=== PATIENT | female | born 1955 | race Caucasian/White ===

== ENCOUNTER 2017-09-22 05:44 | Observation (INO) | payer BC, OTHER ==
[2017-09-22] MEDS ORDERED: LR 1,000 ML IV ONE (06:03)
[2017-09-22] MEDS ORDERED: LIDOCAINE 1% 2 ML INJ ONE (06:15)
--- NOTE | 2017-09-22 06:52 | PDANEPAE ---
ANE History of Present Illness URINARY INCONTINENCE ANE Past Medical History - Cardiovascular History Hx Hypertension: Yes Hx Arrhythmias: No Hx Chest Pain: No Hx Coronary Artery / Peripheral Vascular Disease: No Hx CHF / Valvular Disease: No Hx Palpitations: No Cardiovascular History Comment: MANAGED BY DR CAIT MOMIN - Pulmonary History Hx COPD: No Hx Asthma/Reactive Airway Disease: No Hx Recent Upper Respiratory Infection: No Hx Oxygen in Use at Home: Yes Hx Sleep Apnea: No Sleep Apnea Screening Result - Last Documented: Negative - Neurologic History Hx Cerebrovascular Accident: No Hx Seizures: No Hx Dementia: No - Endocrine History Hx Diabetes: Yes Hypothyroid: No Hyperthyroid: No Obesity: yes, mild Endocrine History Comment: IDDM SINCE 1997 - Renal History Hx Renal Disorders: Yes Renal History Comment: UA INCONT. STAGE II KIDNEY DISEASE - Liver History Hx Hepatic Disorders: No - Neurological & Psychiatric Hx Hx Neurological and Psychiatric Disorders: Yes Neurological / Psychiatric History Comment: MIGRAINES 2X MONTH. DEPRESSION - Cancer History Hx Cancer: No - Congenital Disorder History Hx Congenital Disorders: No - GI History GERD: no Hx Gastrointestinal Disorders: Yes Gastrointestinal History Comment: HIATAL HERNIA IMPROVED POST GASTRIC BYPASS. SLIGHT SCOLIOSIS - Other Health History Other Health History: FIBROMYALGIA. NEUROPATHY ARMS/LEG. [facility] 2002. GLAUCOMA. OSTEOARTHRITIS LT HAND - Chronic Pain History Chronic Pain: Yes (CHRONIC LOWER LUMBAR) - Surgical History Prior Surgeries: MAUREEN CATARACT POST LASER. RT EYE VITRECTOMY. GASTRIC BYPASS 2012 IN [facility]. RT FALLOPIAN TUBE DRAINED FLUID ANE Review of Systems Review of Systems: - Exercise capacity METS (RN): 4 METS - Systems Genitourinary: Reports: incontinence ANE Patient History - Allergies Allergies/Adverse Reactions: ALEX Inhibitors Allergy (Verified 09/08/17 16:41) DIFFICULTY BREATHING ARB-Angiotensin Receptor Antagonist Allergy (Verified 09/08/17 16:41) ANKLE EDEMA ciprofloxacin [From Cipro] Allergy (Verified 09/08/17 16:42) Rash lactose Allergy (Verified 09/08/17 16:43) INTOLERANCE TO MILK OK WITH CHEESE losartan Allergy (Verified 09/08/17 16:40) ORAL SWELLING oxycodone [From Percocet] Allergy (Verified 09/08/17 16:43) NIGHTMARES Penicillins Allergy (Verified 09/08/17 16:42) Rash tetracycline Allergy (Verified 09/08/17 16:42) Rash - Home Medications Home Medications: ASPIRIN DAILY06 09/08/17 [Last Taken 09/16/17] Align DAILY06 09/08/17 [Last Taken 09/20/17] Alphagan 0.2% BID 09/08/17 [Last Taken 09/22/17 05:00] HCTZ (*) DAILY06 09/08/17 [Last Taken 09/20/17] Herbal Drugs DAILY 09/08/17 [Last Taken 09/21/17] Lantus 20 HS 09/08/17 [Last Taken 09/22/17 05:00] Lantus 25 DAILY06 09/08/17 [Last Taken 09/21/17] Macrodantin HS 09/08/17 [Last Taken 09/21/17] SIMVASTATIN HS 09/08/17 [Last Taken 09/21/17] TOPIRAMATE DAILY06 09/08/17 [Last Taken 09/22/17 05:00] Valsartan HS 09/08/17 [Last Taken 09/22/17 05:00] novoLOG BID 09/08/17 [Last Taken 09/21/17 18:00] - NPO status NPO Since - Liquids (Date): 09/21/17 NPO Since - Liquids (Time): 22:00 NPO Since - Solids (Date): 09/21/17 NPO Since - Solids (Time): 23:00 - Anes Hx Anes Hx: no prior problems - Smoking Hx Smoking Status: Never smoked - Alcohol Use Alcohol Use: Rarely - Family Anes Hx Family Anes Hx: neg - N/A ANE Labs/Vital Signs - Vital Signs Blood Pressure: 144/86 Heart Rate: 96 Respiratory Rate: 12 O2 Sat (%): 96 Height: 160.02 cm Weight: 81.193 kg ANE Physical Exam - Airway Neck exam: FROM Mallampati Score: Class 3 Mouth exam: normal dental/mouth exam - Pulmonary Pulmonary: no respiratory distress, no rales or rhonchi, clear to auscultation - Cardiovascular Cardiovascular: regular rate and rhythym, no murmur, rub, or gallop - ASA Status ASA Status: III ANE Anesthesia Plan Anesthesia Plan: general endotracheal anesthesia Total IV Anesthesia: No
[2017-09-22] MEDS ORDERED: ESTROGENS,CONJUGATED 30 GM CRTUBE VG ONE (07:01)
[2017-09-22] MEDS ORDERED: BUPIVACAINE/EPI 0.5% 30 ML SDV ONE (07:01)
--- NOTE | 2017-09-22 07:04 | PDHPUP ---
History & Physical Update H&P update statement: This history and physical update is based on an assessment of the patient which was completed after admission or registration (within 24 hours), but prior to the surgery/procedure. H&P update: H&P reviewed & patient examined
[2017-09-22] MEDS ORDERED: MIDAZOLAM 2 MG/2 ML VIAL ONE (07:07)
[2017-09-22] MEDS ORDERED: MIDAZOLAM 2 MG/2 ML VIAL IVP ONE (07:09)
[2017-09-22] MEDS ORDERED: ceFAZolin 2 GM/SWFI 2 GM/20 ML SYR IVP ONE (07:15)
[2017-09-22] MEDS ORDERED: PROPOFOL 200 MG/20 ML VIAL ONE (07:16)
[2017-09-22] MEDS ORDERED: ONDANSETRON 4 MG/2 ML VIAL ONE (07:16)
[2017-09-22] MEDS ORDERED: fentaNYL 100 MCG/2 ML INJ ONE ×2 (07:16→09:20)
[2017-09-22] MEDS ORDERED: LIDOCAINE 2% 5 ML SDV ONE (07:17)
[2017-09-22] MEDS ORDERED: ROCURONIUM 50 MG/5 ML VIAL ONE (07:17)
[2017-09-22] MEDS ORDERED: PHENYLEPHRINE HCL 100 MCG/ML SYR ONE (07:42)
[2017-09-22] MEDS ORDERED: LIDOCAINE 1% 300 MG/30 ML SDV ONE ×2 (07:42→08:11)
[2017-09-22] MEDS ORDERED: BUPIVACAINE 0.25% 30 ML SDV ONE (07:42)
[2017-09-22] MEDS ORDERED: ACETAMINOPHEN 500 MG TAB PO PRN (08:19)
[2017-09-22] MEDS ORDERED: fentaNYL 100 MCG/2 ML INJ IVP PRN (08:19)
[2017-09-22] MEDS ORDERED: PROMETHAZINE HCL 25 MG/ML INJ IVP PRN (08:19)
[2017-09-22] MEDS ORDERED: NALOXONE HCL 0.4 MG/ML INJ IVP PRN (08:19)
[2017-09-22] MEDS ORDERED: HYDROmorphONE/DILAUDID 1 MG/ML INJ IVP PRN (08:19)
[2017-09-22] MEDS ORDERED: MEPERIDINE 25 MG/ML SYR IVP PRN (08:19)
[2017-09-22] MEDS ORDERED: NS 500 ML IV PRN (08:19)
[2017-09-22] MEDS ORDERED: ONDANSETRON 4 MG/2 ML VIAL IVP PRN ×2 (08:19→13:17)
[2017-09-22] MEDS ORDERED: SUGAMMADEX SODIUM 200 MG/2 ML VIAL IVP ONE (08:32)
[2017-09-22] MEDS ORDERED: KETOROLAC 30 MG/1 ML SDV ONE (08:34)
--- NOTE | 2017-09-22 08:53 | POSTOPPROG ---
Post Op Note Date of Operation: 09/22/17 Surgeon: Walker Garcia Anesthesia: GET(General Endotracheal) Pre-op Diagnosis: MAYA Post-op Diagnosis: MAYA Procedure: mid urethral sling Findings: [id number] Inf/Abcess present in the surg proc area at time of surgery?: No EBL: Minimal Complications: none
--- NOTE | 2017-09-22 09:10 | GOP ---
[f rep st] OPERATIVE REPORT DATE OF OPERATION: 09/22/2017 SURGEON: Singh Garcia MD ANESTHESIA: General. PREOPERATIVE DIAGNOSIS: Stress urinary incontinence. POSTOPERATIVE DIAGNOSIS: Stress urinary incontinence. PROCEDURE PERFORMED: Mid urethral sling. FINDINGS: ESTIMATED BLOOD LOSS: 15 ml COMPLICATIONS: None. DRAINS: Mckeon catheter. PACKING: Vaginal. TECHNIQUE: The patient was taken to the operating room. General anesthesia was induced. Patient was placed in the dorsal lithotomy position, prepped and draped in sterile fashion. A Mckeon catheter was inserted. The [place] retractor was positioned. The bladder was drained. Thirty ml of 0.25% Marcaine with epinephrine were injected around the urethra. Sixty ml of 0.5% plain lidocaine were injected with a spinal needle through stab wounds, which were 2 fingerbreadths lateral to the midline and 1 fingerbreadth above in a significant skin fold. Sixty ml were injected on each side to help hydrodissect. The catheter guide was placed in the bladder. The bladder was directed superiorly into the patient's left. An incision was made in the midline vagina approximately 1.5 cm long approximately 1.5 cm from the meatus. The periurethral dissection was carried out with Metzenbaum scissors. The fascial plane seemed to be appropriate. The trocar was then passed from the vagina out through the patient's right stab wound. The blue sheath was grasped with a hemostat. Cystoscopy was performed with a 70-degree lens, carefully inspecting the bladder, and no bladder injury was noted. This was repeated on the patient's left side. Again, no bladder injury was noted with at least 300 mL distention. The sheath was then pulled up around the catheter around a 7 Hegar dilator. It was pulled snug given the patient's significant stress incontinence and was ensured to be completely flat. The tab was then removed. The sheaths were then removed bilaterally. The trocar was removed. The sling material pulled within the vaginal incision nicely. The excessive sling material was then cut at the skin. The skin was closed with horizontal mattress 3-0 chromic. The vaginal incision was then closed with a running 2-0 Vicryl suture. The vaginal packing with Premarin was placed. The suprapubic wounds were cleansed and Dermabond was applied. The patient was then returned to the supine position and was being prepared for extubation at the time of this dictation. /[id number]/MODL MTDD
--- NOTE | 2017-09-22 09:21 | POSTANESTH ---
Post Anesthetic Evaluation Cardiovascular Status: Normal, Stable Respiratory Status: Normal, Stable Level of Consciousness/Mental Status: Can Participate in Eval Pain Control: Adequate, Prn Tx Ordered Nausea/Vomiting Control: Adequate, Prn Tx Ordered Complications Possibly Related to Anesthesia: None Noted
[2017-09-22] MEDS ORDERED: HYDROCODONE/APAP 5/325 TAB ONE ×2 (10:14→11:02)
[2017-09-22] MEDS: HYDROCODONE/APAP 5/325 TAB PO PRN ×2 (10:15→11:03)
[2017-09-22] MEDS ORDERED: ACETAMINOPHEN 325 MG TAB PO PRN (13:17)
[2017-09-22] MEDS ORDERED: diphenhydrAMINE 25 MG CAP PO PRN (13:17)
[2017-09-22] MEDS ORDERED: LORazepam 0.5 MG TAB PO PRN (13:17)
[2017-09-22] MEDS ORDERED: D50W 25 GM/50 ML SYR IVP PRN (14:07)
[2017-09-22] MEDS ORDERED: LIDOCAINE 5% 1 EA PATCH TD PRN (15:11)
--- NOTE | 2017-09-22 15:24 | PDGENHP ---
History and Physical - Chief Complaint Left lateral upper thigh pain. - History of Present Illness Source-patient provides history appears reliable. Case discussed with Dr. Garcia. EMR reviewed. HPI - 62-year-old female with past medical history significant for chronic pain , diabetes type 2 uncontrolled with retinopathy and neuropathy, hypertension, HLD, anxiety disorder, history West Nile encephalitis admitted postoperatively from a an outpatient transvaginal sling with Dr. Garcia. Procedure was uncomplicated with minimal blood loss. In the PACU however patient did complain of severe "20/10" pain in her left lateral thigh. Patient denies any joint pain. Per Dr. Garcia patient was very tearful she was having trouble ambulating although she did add reports she attempted. She was given a dose of Toradol and Cameron without significant improvement in her pain. Patient reports that sharp constant worse with movement. She denies any new or radicular symptoms. Patient does report a history of sciatica reports no similar symptoms previously. Patient denies any recent injuries or falls. Patient denies any numbness or tingling. She denies any feeling sensation of swelling in her left thigh. History Information - Allergies/Home Medication List Allergies/Adverse Reactions: ALEX Inhibitors Allergy (Verified 09/08/17 16:41) DIFFICULTY BREATHING ARB-Angiotensin Receptor Antagonist Allergy (Verified 09/08/17 16:41) ANKLE EDEMA ciprofloxacin [From Cipro] Allergy (Verified 09/08/17 16:42) Rash lactose Allergy (Verified 09/08/17 16:43) INTOLERANCE TO MILK OK WITH CHEESE losartan Allergy (Verified 09/08/17 16:40) ORAL SWELLING oxycodone [From Percocet] Allergy (Verified 09/08/17 16:43) NIGHTMARES Penicillins Allergy (Verified 09/08/17 16:42) Rash tetracycline Allergy (Verified 09/08/17 16:42) Rash Home Medications: Aspirin [Aspirin 81mg (*)] 81 mg PO DAILY 09/08/17 [Last Taken 09/16/17] Brimonidine 0.1% [ALPHAGAN P 0.1% (*)] 1 drop EACHEYE BID 09/08/17 [Last Taken 09/22/17 05:00] Herbals/Supplements -Info Only 1 ea PO DAILY 09/08/17 [Last Taken Unknown] Hydrochlorothiazide [HCTZ (*)] 25 mg PO DAILY 09/08/17 [Last Taken 09/21/17] Insulin Aspart [novoLOG] 0 unit SC TIDMEAL 09/08/17 [Last Taken 09/21/17 18:00 20 units] Insulin Glargine [Lantus 100 UNITS/ML (*)] 20 units SC BID 09/08/17 [Last Taken 09/22/17 05:00] Nitrofurantoin Monohyd/M-Cryst [Macrobid 100 mg Capsule] 100 mg PO HS 09/08/17 [ Last Taken 09/21/17] Simvastatin [Zocor] 10 mg PO Q2D@21 09/08/17 [Last Taken 09/21/17] Topiramate [Topamax 100MG (*)] 100 mg PO DAILY 09/08/17 [Last Taken 09/22/17 05: 00] Valsartan [Diovan (*)] 160 mg PO BID 09/08/17 [Last Taken 09/22/17 05:00] Cholecalciferol Vit D3 [Vitamin D3 (*)] 1,000 units PO HS 09/22/17 [Last Taken 09/21/17] Cyanocobalamin [Vitamin B12 (*)] 1,000 mcg PO HS 09/22/17 [Last Taken 09/21/17] Multivitamins [Multivitamin (*)] 1 each PO HS 09/22/17 [Last Taken 09/21/17] I have personally reviewed and updated: family history, medical history, social history, surgical history - Past Medical History Additional medical history: Diabetes type 2 insulin dependent with retinopathy, read neuropathy and listed in medical chart CKD stage 2 which patient denies. 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 Patient reports feeling safe at home. Her travels between [place] and out of [facility] for work and is due to return evening of surgery. Cor status-full Review of Systems Review of Systems: ROS: 10pt was reviewed & negative except for what was stated in HPI & below Constitutional: Denies: chills, fever Genitourinary: Reports: other (Postop vaginal pain, Barrett in place) Neurological: Reports: headache, numbness (Chronic left fingers) Physical Exam Physical Exam: Selected Entries 09/22/17 06:08 Heart Rate 96 Respiratory 12 Rate O2 Sat (%) 96 Temperature (C) 37.1 C Blood Pressure 144/86 H Temp Pulse Resp BP Pulse Ox 36.6 C 96 14 151/85 H 99 09/22/17 10:02 09/22/17 08:07 09/22/17 11:02 09/22/17 12:32 09/22/17 12:32 O2 (L/minute) 2 Constitutional: no apparent distress, obese, No unkempt Eyes: PERRL, anicteric sclera, EOMI, other (Bilateral lens reflex), No scleral injection Ears, Nose, Mouth, Throat: moist mucous membranes, other (No nasal discharge) Cardiovascular: regular rate and rhythym, no murmur, rub, or gallop (Slightly distant heart sounds), other (SCDs in place), No systolic murmur, No edema Peripheral Pulses: 1+: dorsalis-pedis (R), dorsalis-pedis (L) Respiratory: no respiratory distress, no rales or rhonchi, clear to auscultation , No reduced air movement Gastrointestinal: normoactive bowel sounds, soft, non-tender abdomen, no palpable masses, other (Obese, lower abdominal small incision sites intact sutured), No guarding, No distension Genitourinary: no bladder tenderness, barrett in urethra Skin: warm, normal color, no rashes or abrasions Musculoskeletal: normal joint ROM, pain with ROM (Left lateral hip over the trochanteric bursa and along ITB), other (No mass or hematoma palpated along the left proximal lateral and medial thigh), No joint effusion, No joint tenderness, No generalized weakness Neurologic: AAOx3, sensation intact bilaterally, CN II-XII Intact (Grossly normal), No weakness Psychiatric: interacting appropriately, anxious (Patient laughs regularly during interview occasionally may appear slightly inappropriate otherwise thought process, content, questions are appropriate.), No depressed, No poor insight, No poor judgement, No poor memory Lymph, Heme, Immunologic: No ecchymoses, No petechiae Lab Data & Imaging Review POC Glucose 191 mg/dL (70-100) H 09/22/17 11:12 Laboratory Tests 09/17/17 09/21/17 09:41 11:43 Potassium 3.3 L 4.5 Assessment & Plan Assessment: 62-year-old female with multiple chronic medical problems admitted postoperatively for acute left lateral thigh pain. #. Left lateral proximal thigh pain - suspect this is all soft tissue in nature. Tenderness is pinpoint wound on the trochanteric bursa. Patient also with some discomfort along the ITB band. I do not palpate any hematomas or masses. Patient has a K-pad in place which will continue. She has Cameron p.r.n. for postoperative pain and Flexeril for spasm type pain. Given patient's postoperative status I did discuss with Dr. Garcia regarding recommendations for further use of NSAIDs however patient did receive a dose perioperatively and given patient's recent surgery it is not recommended that she continue. Addition patient also with history CKD stage 2 in her chart which she denies on given she has multiple on sequelae from her uncontrolled diabetes as noted in her preop outpatient notes will try to avoid use of NSAIDs at this time. Encourage mobilization. PT consulted for a.m. a.m. H&H # postop day 0 from transvaginal sling - routine postoperative care. Barrett catheter and vaginal packing fell be removed in the morning prior to patient's discharge. Start patient's Keflex this afternoon Status post Ancef preoperatively. # hypokalemia-patient on had oral replacement as outpatient. Will check an a.m.. chronic medical issues # DM 2 uncontrolled with complications of retinopathy, neuropathy and possibly nephropathy-patient's blood sugar slightly elevated downtrending. The patient' s diet is advancing have ordered carb controlled diet. Patient has been placed on a low-dose sliding scale at this time. Will plan to resume her 20 U of Lantus at HS in a.m.. Patient typically receives 20 U of NovoLog in the morning and the evening. At this point will monitor closely and use sliding scale unless patient's sugars should continue to climb. Sits and suspect that patient's diet varies slightly from ADA for recommendations at home. # benign essential hypertension-resume patient's home dosing of valsartan # HLD-resume patient's statin # migraine NUNEZ - resume topamax # glaucoma-resume patient's Alphagan #. obesity (BMI 31.7) - mobilize. ADA diet. FEN - no IVF. encouraged patient to drink more water. she eclined and requested diet cola. reviewed effects of caffeine as diuretic and again encouraged po hydration. electrolytes check bmp in AM. ADA diet ordered. PPX - SCDs. mobilize. anticoagulation as per Dr. Garcia. COR - FULL Dispo - Admit to observation on [facility]. anticipate d/c in AM.
[2017-09-22] MEDS: CYCLOBENZAPRINE 10 MG TAB PO PRN ×2 (16:06→21:53)
[2017-09-22] MEDS ORDERED: INSULIN LISPRO 100 UNIT/ML SC SCH (17:30)
[2017-09-22] MEDS: CEPHALEXIN 500 MG CAP PO SCH ×2 (18:58→21:53)
[2017-09-22] MEDS: INSULIN LISPRO 100 UNIT/ML SC SCH ×2 (18:59→22:00)
[2017-09-22] MEDS ORDERED: INSULIN LISPRO 100 UNIT/ML SC ONE (19:31)
[2017-09-22] MEDS ORDERED: NON-FORMULARY NEW DRUG (Simvastatin [Zocor] 10 MG) PO SCH (21:00)
[2017-09-22] MEDS ORDERED: INSULIN GLARGINE 20 UNIT SC SCH (21:00)
[2017-09-22] MEDS: VALSARTAN 160 MG TAB PO SCH (21:23)
[2017-09-22] MEDS: BRIMONIDINE 0.1% 5 ML OPHT.BTL EACHEYE SCH (21:27)
[2017-09-22] MEDS: INSULIN GLARGINE 100 UNITS/ML SYRINGE SC SCH (21:52)
[2017-09-22] MEDS: PATCH REMOVAL 1 EA PATCH TD SCH (23:07)
[2017-09-23] MEDS: INSULIN GLARGINE 100 UNITS/ML SYRINGE SC SCH ×2 (08:40→20:51)
[2017-09-23] MEDS: HYDROCHLOROTHIAZIDE 25 MG TAB PO SCH (08:48)
[2017-09-23] MEDS: CEPHALEXIN 500 MG CAP PO SCH ×3 (08:49→22:06)
[2017-09-23] MEDS: TOPIRAMATE 100 MG TAB PO SCH (08:49)
[2017-09-23] MEDS: VALSARTAN 160 MG TAB PO SCH ×2 (08:50→20:51)
[2017-09-23] MEDS: BRIMONIDINE 0.1% 5 ML OPHT.BTL EACHEYE SCH ×2 (08:51→20:53)
[2017-09-23] MEDS: INSULIN LISPRO 100 UNIT/ML SC SCH ×3 (09:12→23:14)
[2017-09-23] MEDS: HYDROCODONE/APAP 5/325 TAB PO PRN (09:54)
[2017-09-23] MEDS: CYCLOBENZAPRINE 10 MG TAB PO PRN (13:05)
--- NOTE | 2017-09-23 16:47 | HOSPPROG ---
Hospitalist Progress Note Assessment/Plan: # L leg pain post vaginal sling - likely d/t positioning in surgery; she also has chronic pain which complicates the picture - not ambulating well, unsafe to dc today - cont pain control # s/p transvaginal bladder sling by dr urias - Mitra post-op # DM2 - glucs running high - cont home glargine, ssi # htn - valartan # hld - statin # migraines - topamax # glaucoma - alphagan # obesity - BMI 31 Subjective: overall feels better, but barely ambulating Objective: Vital Signs Temp Pulse Resp BP Pulse Ox 37.6 C 86 20 137/88 H 94 09/23/17 08:00 09/23/17 08:00 09/23/17 08:00 09/23/17 08:50 09/23/17 08:00 Laboratory Results 09/23/17 05:30 09/22/17 09/23/17 09/24/17 05:59 05:59 05:59 Intake Total 2020 Output Total 1325 Balance 695 - Physical Exam Constitutional: no apparent distress, appears nourished Eyes: anicteric sclera Ears, Nose, Mouth, Throat: hearing normal Cardiovascular: No edema Respiratory: no respiratory distress Gastrointestinal: No distension Genitourinary: barrett in urethra Skin: warm Musculoskeletal: other (L upper leg TTP; L hip TTP with rotation; also TTP bilat calves) Neurologic: AAOx3 Psychiatric: not anxious ICD10 Worksheet Patient Problems: Problems Problem Status Onset Leg pain Acute
[2017-09-23] MEDS ORDERED: PRAVASTATIN SODIUM 20 MG TAB PO SCH (21:00)
[2017-09-23] MEDS: PATCH REMOVAL 1 EA PATCH TD SCH (22:07)
[2017-09-24] MEDS: INSULIN LISPRO 100 UNIT/ML SC SCH ×3 (02:52→12:20)
[2017-09-24] MEDS: HYDROCODONE/APAP 5/325 TAB PO PRN ×2 (02:59→09:24)
[2017-09-24] MEDS: CYCLOBENZAPRINE 10 MG TAB PO PRN ×2 (03:00→11:02)
[2017-09-24 09:15] VITALS: PULSE 84; RESP 20; TEMP 98.9; O2SAT 92
[2017-09-24] MEDS: BRIMONIDINE 0.1% 5 ML OPHT.BTL EACHEYE SCH (09:15)
[2017-09-24] MEDS: VALSARTAN 160 MG TAB PO SCH (09:16)
[2017-09-24] MEDS: HYDROCHLOROTHIAZIDE 25 MG TAB PO SCH (09:23)
[2017-09-24] MEDS: TOPIRAMATE 100 MG TAB PO SCH (09:23)
[2017-09-24] MEDS: CEPHALEXIN 500 MG CAP PO SCH (09:24)
[2017-09-24] MEDS: INSULIN GLARGINE 100 UNITS/ML SYRINGE SC SCH (09:24)
[2017-09-24 09:25] VITALS: BP 125/74
[2017-09-24] MEDS ORDERED: CALCIUM CARBONATE 500 MG CHEWABLE TAB PO PRN (12:55)
--- NOTE | 2017-09-24 13:32 | GDS ---
[f rep st] DISCHARGE SUMMARY ALL DIAGNOSES: 1. Left leg pain, soft tissue in nature. 2. Postoperative day #2 post transvaginal bladder sling by Dr. Tico Garcia. 3. Diabetes mellitus, type 2. 4. Hypertension. 5. Hyperlipidemia. 6. Migraines. 7. Glaucoma. 8. Obesity. 9. Chronic coccyx pain. HOSPITAL COURSE: A 62-year-old female admitted after an elective transvaginal bladder sling placemen t. She had significant left leg pain postoperatively. It is thought that this is likely due to surg ical positioning in the setting of having chronic pelvic pain from coccydynia. She has improved quit e well over the past few days. She is now ambulating short distances. She has been working with [facility]. They have cleared her for home at this time. She is given a short course of [place], a s well as Flexeril, for her ongoing pain. Her and son will both be around for the next few d ays to help her take care of things at home. She is also given a prescription for an additional 5 da ys of Keflex, to make a total of 1 week post bladder sling placement. She will follow up with Dr. Avis palma in 3 weeks. She is comfortable with all these plans. BILLING: I spent more than 30 minutes on the day of discharge coordinating care. /[id number]/MODL
== END 2017-09-24 14:55 | disposition home or self-care (01) ==
LOC: FSGY 05:44 → F3E 12:34 → FOB 13:05
PROVIDERS: ADMIT Specialist; ATTEND Specialist
PROC: 0TUC0JZ Supplement Bladder Neck with Synthetic Substitute, Open Approach (ICD-10-PCS; principal; 2017-09-22 07:15)
DX: N39.3 Stress incontinence (female) (male) (principal); M79.605 Pain in left leg; E11.9 Type 2 diabetes mellitus without complications; I10 Essential (primary) hypertension; E78.5 Hyperlipidemia, unspecified; G43.909 Migraine, unspecified, not intractable, without status migrainosus; H40.9 Unspecified glaucoma; E66.9 Obesity, unspecified; M53.3 Sacrococcygeal disorders, not elsewhere classified
CPT/HCPCS: 57288; 97116; 97161; G0378; C1771; J0171; J0690; J1815; J1885; J2250; J2370; J2405; J2704; J3010